=== PATIENT | male | born 1990 | race Caucasian/White ===

== ENCOUNTER 2020-03-31 09:55 | Emergency (ER) | payer OTHER ==
[~2020-03-31] VITALS: Ht 190.5 cm; Wt 86.2 kg
[2020-03-31] MEDS ORDERED: KEFLEX500 M1 PO (10:41)
[2020-03-31 10:47] VITALS: BP 114/72
== END 2020-03-31 10:47 | disposition home or self-care (01) ==
LOC: M.ERS 09:55
DX: S81.811A Laceration without foreign body, right lower leg, initial encounter (principal); Z88.0 Allergy status to penicillin; W22.8XXA Striking against or struck by other objects, initial encounter; Y93.89 Activity, other specified; Y92.89 Other specified places as the place of occurrence of the external cause; Y99.8 Other external cause status